=== PATIENT | male | born 1970 | race Caucasian/White ===

== ENCOUNTER 2017-08-05 10:32 | Emergency (ER) | payer MEDICARE, OTHER ==
[~2017-08-05] VITALS: Ht 177.8 cm; Wt 117.9 kg
[2017-08-05 10:50] VITALS: BP 157/96
[2017-08-05] MEDS ORDERED: DIPHTH,PERTUSS(ACELL),TET TOX 0.5 ML DISP.SYRIN. VAX IM ONE (11:00)
--- NOTE | 2017-08-05 11:05 | PHYS DOC ---
Past Medical History Past Medical History: Hypertension, Other Additional Past Medical Histor: brain aneurysm, Past Surgical History: Appendectomy, Cholecystectomy, Other Additional Past Surgical Histo: lymph node removed from right axilla Alcohol Use: Rarely Drug Use: None Adult General Chief Complaint Chief Complaint: UPPER EXTREMITY PAIN HPI HPI Patient is a 47 year old male presents emergency department with a history of hard and areas under his left axillary. Patient states that the areas are draining some yellow drainage and then bloody drainage today. He denies any fever, chills or any nausea vomiting. Patient states he has had abscesses before however he ended up having his right axillary lymph node removed at that time. Patient is unsure when his last tetanus immunization occurred. He does state he is allergic to penicillin. Review of Systems Review of Systems Constitutional: Denies fever or chills [] Eyes: Denies change in visual acuity, redness, or eye pain [] HENT: Denies nasal congestion or sore throat [] Respiratory: Denies cough or shortness of breath [] Cardiovascular: No additional information not addressed in HPI [] GI: Denies abdominal pain, nausea, vomiting, bloody stools or diarrhea [] : Denies dysuria or hematuria [] Musculoskeletal: Denies back pain or joint pain [] Integument: Denies rash or skin lesions. Left axilla abscess Neurologic: Denies headache, focal weakness or sensory changes [] Endocrine: Denies polyuria or polydipsia [] Current Medications Current Medications Current Medications Medications (Trade) Dose Ordered Sig/Aria Start Time Stop Time Status Last Admin Dose Admin Diphtheria/ Tetanus/Acell Pertussis (Boostrix) 0.5 ml ONCE ONCE 08/05/17 11:00 08/05/17 11:11 DC 08/05/17 11:20 0.5 ML Allergies Allergies Allergies Coded Allergies Type Severity Reaction Last Updated Verified Penicillins Allergy Intermediate 08/05/17 Yes Physical Exam Physical Exam Constitutional: Well developed, well nourished, no acute distress, non-toxic appearance. [] HENT: Normocephalic, atraumatic, bilateral external ears normal, oropharynx moist, no oral exudates, nose normal. [] Eyes: PERRLA, EOMI, conjunctiva normal, no discharge. [] Neck: Normal range of motion, no tenderness, supple, no stridor. [] Cardiovascular:Heart rate regular rhythm, no murmur [] Lungs & Thorax: Bilateral breath sounds clear to auscultation [] Skin: Warm, dry, no erythema, no rash. Left axilla with two areas that appear hard with no fluctuance, no induration noted. No drainage noted at this time. Redness noted around the entire axilla area. Back: No tenderness Extremities: No tenderness, no cyanosis, no clubbing, ROM intact, no edema. [] Neurologic: Alert and oriented X 3, normal motor function, normal sensory function, no focal deficits noted. [] Psychologic: Affect normal, judgement normal, mood normal. [] Current Patient Data Vital Signs Vital Signs Date Time Temp Pulse Resp B/P (MAP) Pulse Ox O2 Delivery O2 Flow Rate FiO2 08/05/17 10:50 97.6 86 16 94 Room Air 97.6 EKG EKG [] Radiology/Procedures Radiology/Procedures [facility] [address] [place], [place] [id number] IMAGING REPORT Signed PATIENT: SENDY GREEN ACCOUNT: [id number] : 1970 LOCATION: ER AGE: 47 SEX: M EXAM STATUS: REG ER ORD. PHYSICIAN: SAMUEL MOLINA APRN REASON: upper left axilla questionable abscess PROCEDURE: EXT NON VASC LEFT Left axillary ultrasound, 08/05/2017: History: Redness and swelling The area of clinical concern was carefully scanned. There is a small, irregular subcutaneous hypoechoic process at this level. There are low level internal echoes in a pattern suggesting complicated fluid. The main portion of this process measures approximately 7 x 5 mm. There is a thinner elongated component extending superiorly and medially. There appears to be a small tract extending to the skin. The appearance is most compatible with a small subcutaneous abscess. DICTATED and SIGNED BY: CARYN JUAREZ MD DATE: 08/05/17 1136 CC: SAMUEL MOLINA APRN; SALLY INIGUEZ; NON,STAFF ~ [] Course & Med Decision Making Course & Med Decision Making Pertinent Labs and Imaging studies reviewed. (See chart for details) CT patient was updated with a tetanus immunization here in the emergency department. Patient's ultrasound identified a subcutaneous abscess. The area appears very hard in nature therefore patient will be encouraged to use warm moist packs to the area 5 times a day. Recommended Bactrim for an antibiotic. Patient will be discharged home in stable condition with recommendations to follow-up the primary care physician in the next 3-5 days. Patient agrees with discharge instructions, treatment regimens and follow-up recommendations. Signs and symptoms to return back to emergency department as been provided. Patient and family member agree with discharge instructions. All questions and concerns been answered at patient's bedside. [] I did not see or treat this patient. I was available for consultation. I am signing this note administratively. Dragon Disclaimer Dragon Disclaimer This electronic medical record was generated, in whole or in part, using a voice recognition dictation system. Departure Departure Impression: Primary Impression: Abscess Disposition: 01 HOME, SELF-CARE Condition: STABLE Referrals: SALLY INIGUEZ (PCP) Patient Instructions: Abscess, [id number] Additional Instructions: Activity as tolerated. Tylenol or ibuprofen for pain and discomfort. Antibiotics as prescribed. Warm moist packs to the area 5 times a day. Follow-up to primary care physician next 3-5 days. Return back to emergency prior signs symptoms of become worse. Scripts Sulfamethoxazole/Trimethoprim (BACTRIM DS TABLET) 1 Each Tablet 1 TAB PO BID, #20 TAB Prov: SAMUEL MOLINA APRN 08/05/17 SAMUEL MOLINA APRN Aug 05, 2017 11:05 NICANOR GONZALEZ MD Aug 06, 2017 07:56
--- NOTE | 2017-08-05 11:42 | RAD ---
Left axillary ultrasound, 08/05/2017: History: Redness and swelling The area of clinical concern was carefully scanned. There is a small, irregular subcutaneous hypoechoic process at this level. There are low level internal echoes in a pattern suggesting complicated fluid. The main portion of this process measures approximately 7 x 5 mm. There is a thinner elongated component extending superiorly and medially. There appears to be a small tract extending to the skin. The appearance is most compatible with a small subcutaneous abscess.
[2017-08-05] MEDS ORDERED: SULF1TAB24 PO (11:48)
== END 2017-08-05 11:54 | disposition home or self-care (01) ==
LOC: ER 10:32
DX: L02.412 Cutaneous abscess of left axilla (principal); I10 Essential (primary) hypertension; Z88.0 Allergy status to penicillin
CPT/HCPCS: 76881; 90471; 90715; 99284-25

== ENCOUNTER 2017-08-18 13:24 | Emergency (ER) | payer MEDICARE, OTHER ==
[~2017-08-18] VITALS: Ht 177.8 cm; Wt 120.2 kg
[~2017-08-18 13:24] MED LIST: SULF1TAB24 PO
[2017-08-18 14:10] VITALS: BP 142/91
--- NOTE | 2017-08-18 14:52 | RAD ---
Three-view left ankle radiographs 08/18/2017 Clinical history: Left ankle pain. AP, lateral and oblique digital radiographs of the left ankle were obtained. 2 bone screws are seen transfixing a healed fracture of the medial malleolus of the left ankle. The left ankle mortise is intact. Mild degenerative changes are seen involving the left ankle joint. No acute fracture or dislocation is seen. Mild enthesophyte formation is seen involving the plantar aspect of the left calcaneus. Impression: Degenerative changes are seen involving the left ankle as outlined above. No acute osseous abnormality is seen.
[2017-08-18] MEDS ORDERED: HYDR-971 PO (15:25)
--- NOTE | 2017-08-18 15:25 | PHYS DOC ---
Past Medical History Past Medical History: Hypertension, Other Additional Past Medical Histor: brain aneurysm, Past Surgical History: Appendectomy, Cholecystectomy, Other Additional Past Surgical Histo: lymph node removed from right axilla Alcohol Use: Rarely Drug Use: None Adult General Chief Complaint Chief Complaint: ANKLE PROBLEM HPI HPI Patient is a 47 year old male with history of hypertension who presents today with mild left lateral and medial ankle pain that began couple days ago. Patient states the pain is worse on ambulation. Patient denies any known injury. He has history of left ankle fracture with orthopedic hardware and is concerned he could've damaged his hardware. Review of Systems Review of Systems Constitutional: Denies fever or chills [] Musculoskeletal:left lateral and medial ankle pain Integument: Denies rash or skin lesions [] Neurologic: Denies headache, focal weakness or sensory changes [] Current Medications Current Medications Current Medications Medications (Trade) Dose Ordered Sig/Aria Start Time Stop Time Status Last Admin Dose Admin Acetaminophen/ Hydrocodone Bitart (Lortab 5/325) 2 tab 1X ONCE 08/18/17 15:30 08/18/17 15:31 Allergies Allergies Allergies Coded Allergies Type Severity Reaction Last Updated Verified Penicillins Allergy Intermediate 08/05/17 Yes Physical Exam Physical Exam Constitutional: Well developed, well nourished, no acute distress, non-toxic appearance. [] Skin: Warm, dry, no erythema, no rash. [] Back: No tenderness, no CVA tenderness. [] Extremities: Left ankle with no obvious deformity. Trace edema noted diffusely on the left ankle. Full range of motion to the left ankle. +2 left pedal pulse. Patient is up and ambulating on his feet with no difficulties. Neurologic: Alert and oriented X 3, normal motor function, normal sensory function, no focal deficits noted. [] Psychologic: Affect normal, judgement normal, mood normal. [] Current Patient Data Vital Signs Vital Signs Date Time Temp Pulse Resp B/P (MAP) Pulse Ox O2 Delivery O2 Flow Rate FiO2 08/18/17 14:10 97.9 88 20 142/91 (108) 97 Room Air 97.9 EKG EKG [] Radiology/Procedures Radiology/Procedures [] Course & Med Decision Making Course & Med Decision Making Pertinent Labs and Imaging studies reviewed. (See chart for details) Patient is in the ED with left ankle pain no known injury. Is requesting x-rays of his left ankle because his orthopedic abdomen and is concerned he could've damaged them. X-rays of the left ankle interpreted by radiologist were noted for arthritis otherwise no acute findings. Patient was discharged with instructions to follow-up with his own orthopedic doctor Mitzy Disclaimer Mitzy Disclaimer This electronic medical record was generated, in whole or in part, using a voice recognition dictation system. Departure Departure Impression: Primary Impression: Ankle pain, left Additional Impression: DJD (degenerative joint disease), ankle and foot Disposition: HOME, SELF-CARE Condition: STABLE Referrals: SALLY INIGUEZ (PCP) LUDIVINA CERNA MD follow up with your orthopedic doctor in one week Patient Instructions: Ankle Pain, Arthritis, Degenerative-Brief Additional Instructions: You were seen for left ankle pain, your x-rays of the left ankle were negative for any acute findings, urine noted for arthritis and left ankle. Wear the orthopedic shoe at home as tolerated. Ice and elevate the extremity. Follow-up with orthopedic doctor the provided doctor in one week. Scripts Hydrocodone/Apap 5-325 (NORCO 5-325 TABLET) 1 Each Tablet 1-2 TAB PO Q4-6HRS, #10 TAB Prov: NICANOR ANDERSON [employer] INSPECTOR 08/18/17 Problem Qualifiers Primary Impression: Ankle pain, left Chronicity: acute Qualified Codes: M25.572 - Pain in left ankle and joints of left foot Additional Impression: DJD (degenerative joint disease), ankle and foot Laterality: left Qualified Codes: M19.072 - Primary osteoarthritis, left ankle and foot NICANOR ANDERSON [employer] INSPECTOR Aug 18, 2017 15:25
[2017-08-18] MEDS ORDERED: HYDROcodone/APAP 5/325MG 1 TAB TABLET PO ONE (15:30)
== END 2017-08-18 15:38 | disposition home or self-care (01) ==
LOC: ER 13:24
DX: M19.072 Primary osteoarthritis, left ankle and foot (principal); I10 Essential (primary) hypertension; I67.1 Cerebral aneurysm, nonruptured; Z88.0 Allergy status to penicillin
CPT/HCPCS: 73610; 99284

== ENCOUNTER 2018-02-27 17:15 | Emergency (ER) | payer MEDICARE, OTHER | END 2018-02-27 18:51 | disposition home or self-care (01) | LOC: ER 17:15 | DX: G56.01 Carpal tunnel syndrome, right upper limb (principal); I10 Essential (primary) hypertension; F31.9 Bipolar disorder, unspecified | CPT/HCPCS: 29125; 73110; 99284-25 ==

== ENCOUNTER 2018-05-11 20:45 | Emergency (ER) | payer MEDICARE, OTHER | END 2018-05-11 22:00 | disposition home or self-care (01) | LOC: ER 22:00 | DX: L25.9 Unspecified contact dermatitis, unspecified cause (principal); I10 Essential (primary) hypertension; F31.9 Bipolar disorder, unspecified; Z88.0 Allergy status to penicillin | CPT/HCPCS: 99283 ==